=== PATIENT | male | born 1955 | race Caucasian/White ===

== ENCOUNTER → 2018-10-23 | Outpatient (CLI) | payer BC ==
[~2018-10-23] MED LIST: AMLO5; ASPI81CH; CIPR500 PO; FINA5; FINA5 PO; FISH1000; GLUCOSAMINE &1 EACH PO; HYDR1TAB94 PO; Multiple Vitam1 EAC1; Pyridium100 MG PO; TAMSULOSIN HCL0.4 MG PO
== END | disposition home or self-care (01) ==
LOC: PLD 08:41 → LAB SHORT 08:41
DX: D48.5 Neoplasm of uncertain behavior of skin (principal)
CPT/HCPCS: 88305

== ENCOUNTER 2020-09-23 09:51 | Day surgery (SDC) | payer MEDICARE ==
[~2020-09-23] VITALS: Ht 177.8 cm; Wt 81.1 kg
== END 2020-09-23 12:01 | disposition home or self-care (01) ==
LOC: ORSCSDS 09:51
PROVIDERS: Internal Medicine Gastroenterology
PROC: 0DBN8ZX Excision of Sigmoid Colon, Via Natural or Artificial Opening Endoscopic, Diagnostic (ICD-10-PCS; principal; 2020-09-23 11:00)
PROC: 0DBL8ZX Excision of Transverse Colon, Via Natural or Artificial Opening Endoscopic, Diagnostic (ICD-10-PCS; principal; 2020-09-23 11:00)
DX: Z12.11 Encounter for screening for malignant neoplasm of colon (principal); Z86.010 Personal history of colon polyps; D12.3 Benign neoplasm of transverse colon; D12.5 Benign neoplasm of sigmoid colon; K64.8 Other hemorrhoids; Z79.899 Other long term (current) drug therapy; Z79.82 Long term (current) use of aspirin
CPT/HCPCS: 88305; J2704; J7120

== ENCOUNTER 2024-07-08 01:48 | Emergency (ER) | payer MEDICARE ==
[~2024-07-08] VITALS: Ht 177.8 cm; Wt 81.7 kg
[~2024-07-08 01:48] MED LIST changes: +ERGO50000; +FIBERWELL2.5 GM; +Vitamin C100 M1
[2024-07-08 06:50] VITALS: BP 150/80
== END 2024-07-08 06:54 | disposition home or self-care (01) ==
LOC: ER 01:48
DX: H53.8 Other visual disturbances (principal); Z91.018 Allergy to other foods; Z88.0 Allergy status to penicillin; Z88.8 Allergy status to other drugs, medicaments and biological substances; Z79.899 Other long term (current) drug therapy
CPT/HCPCS: 70496; 99284-25; Q9967

== ENCOUNTER 2025-01-31 05:45 | Day surgery (SDC) | payer MEDICARE ==
[2025-01-31] VITALS (14 sets, daily range): BP systolic 113–154; BP diastolic 75–96
[2025-01-31] MEDS ORDERED: Aspir 8181 MG PO (06:29)
[2025-01-31] MEDS ORDERED: LATA.005SO LEFTEYE (06:29)
[2025-01-31] MEDS ORDERED: OLME5TAB PO (06:30)
[2025-01-31] MEDS ORDERED: TIMO.5OPSO BOTHEYES (06:31)
[2025-01-31] MEDS ORDERED: Benzocaine Oral Spray 0.5ML UD ONE (06:35)
[2025-01-31] MEDS ORDERED: NS 1,000 ML IV ONE (06:48)
--- NOTE | 2025-01-31 07:05 | NUR ---
ASSUMED CARE FROM ANESTHESIA. PT AWAKE AND VERBALIZING WELL.
--- NOTE | 2025-01-31 08:02 | NUR ---
PT VERBALIZED UNDERSTANDING OF WRITTEN AND VERBAL D/C INST. IV REMOVED. PT WILL BE TAKEN OUT OF THE HRT CENTER VIA W/C.
[2025-01-31] MEDS ORDERED: Lidocaine HCl 2% 20 MG/ML 5ML SYR IV ONE (14:42)
[2025-01-31] MEDS ORDERED: Propofol 10mg/ml 20 ml Vial (Procedural) IV ONE (14:42)
== END 2025-01-31 23:00 | disposition home or self-care (01) ==
LOC: MHTC 05:45
DX: G45.9 Transient cerebral ischemic attack, unspecified (principal); I10 Essential (primary) hypertension; Z79.82 Long term (current) use of aspirin; Z79.899 Other long term (current) drug therapy; Z91.018 Allergy to other foods; Z88.0 Allergy status to penicillin; Z88.8 Allergy status to other drugs, medicaments and biological substances; E78.5 Hyperlipidemia, unspecified
CPT/HCPCS: 93312; 93325; A9270; J2003; J2704; J7030